=== PATIENT | male | born 1945 | race American Indian/Alaskan Native ===

== ENCOUNTER 2017-12-09 11:52 | Outpatient (CLI) | payer MEDICARE ==
--- NOTE | 2017-12-09 15:19 | Cat Scan Report ---
FINAL REPORT PROCEDURE: CT ABDOMEN PELVIS WO CON TECHNIQUE: Computerized axial tomography of the abdomen and pelvis was performed without intravenous contrast. This study is performed without intravascular contrast material and its sensitivity for abdominal and pelvic pathology, including neoplasms, inflammation, abscess, free fluid, thrombosis, arterial dissection and infarction, is reduced compared with a contrast enhanced study. Oral contrast was not administered limiting evaluation of the bowel as well. HISTORY: HEMATURIA COMPARISON: None FINDINGS: Visualized lower thorax: Mild bibasilar subsegmental atelectasis. Liver: No focal abnormality. Spleen: Normal size and attenuation. Gallbladder and biliary system: Normal. Pancreas: Normal. Adrenals: Normal. Kidneys: Subtle 1-2 millimeter right renal calculi without hydronephrosis. Hypodensity of the anterior upper pole of the right kidney 1.8 x 2.4 centimeters. Hypodensity of the posterior mid/lower pole of the left kidney 1.3 x 1.1 centimeters. GI tract: Mild sigmoid diverticulosis. No bowel obstruction. Normal appendix. Lymph nodes and mesentery: Normal. Vasculature: Mild atherosclerosis. No abdominal aortic aneurysm. Bladder: Normal. Reproductive organs: Penile prosthesis in place. Peritoneum: No ascites. Musculoskeletal structures: Degenerative changes of the spine, worst at L4/L5 and L5/S1. Lesser DJD of the hips.. Other: None. IMPRESSION: Hypodensities likely benign cysts of the bilateral kidneys as well as tiny right renal calculi without hydronephrosis. Consider follow-up with contrast-enhanced CT or ultrasound. Mild sigmoid diverticulosis. Degenerative changes of the spine worse than hips. Penile prosthesis.
== END 2017-12-09 11:53 | disposition home or self-care (01) ==
LOC: CT 11:52
PROVIDERS: ATTEND Urology
DX: N20.0 Calculus of kidney (principal); K57.30 Diverticulosis of large intestine without perforation or abscess without bleeding; J98.11 Atelectasis; I70.90 Unspecified atherosclerosis; M47.897 Other spondylosis, lumbosacral region
CPT/HCPCS: 74176